=== PATIENT | female | born 1945 | race Caucasian/White ===

== ENCOUNTER → 2017-04-27 | Outpatient (CLI) | payer MEDICARE, BC ==
[2017-04-27 10:42] LABS: CREATININE 0.97 mg/dl (0.44-1.00)
[2017-04-27 10:42] LABS: BLOOD UREA NITROGEN 25 mg/dl (7-20)
[2017-04-27] MEDS: NITROGLYCERIN AEROSOL (4.9 GM) (12:35)
[2017-04-27] MEDS: SOD CHLORIDE 0.9% 100 ML (12:48)
[2017-04-27] MEDS: IOHEXOL 100 ML (12:48)
[2017-04-27] MEDS: IOHEXOL 350MG/ML 50 ML BTL (12:49)
== END | disposition home or self-care (01) ==
LOC: LAB 09:41
DX: Z01.818 Encounter for other preprocedural examination (principal); I25.10 Atherosclerotic heart disease of native coronary artery without angina pectoris
CPT/HCPCS: 75574; 82565; 84520